=== PATIENT | female | born 1990 | race Caucasian/White ===

== ENCOUNTER 2016-05-25 19:25 | Emergency (ER) | payer BC, OTHER ==
[~2016-05-25] VITALS: Ht 162.6 cm; Wt 53.0 kg
[~2016-05-25 19:25] MED LIST: AGM875 PO; CLONOPIN; YAZ
[2016-05-25 19:36] VITALS: BP 115/63; PULSE 66; TEMP 37; O2SAT 93; Ht 162.6 cm; Wt 53.0 kg
[2016-05-25] MEDS ORDERED: ACETAMINOPHEN 500 MG TAB PO STA (19:53)
[2016-05-25] MEDS ORDERED: BCPILLS PO (19:55)
[2016-05-25] MEDS ORDERED: CITA20TA4 PO (19:55)
--- NOTE | 2016-05-25 22:36 | EMERGENCY ROOM VISIT NOTE ---
History Report prepared by Angelica: Zoila Lin Under the Supervision of: Dr. Osmin Dickey D.O. First contact with patient: 19:40 Chief Complaint: SWELLING TO EXTREMITY Stated Complaint: RT LEG SWELLING History of Present Illness The patient is a 25 year old female who presents to the Emergency Room with complaints of worsening swelling to her right lower extremity for the past 2 hours. The patient was hiking today and states that she fell while she was "jumping from rock to rock." She landed on the right side of her body. She is complaining of right lower leg pain, right forearm pain, right wrist pain, and left knee pain. Bending and palpation exacerbate her pain. The patient rates her current pain as a 10/10 in severity. She went to [facility] and had x-rays done that she states did not reveal any fractures. She was told to come to the ED for further evaluation because they were concerned for compartment syndrome. The patient denies any head injury, LOC, neck pain, and back pain. She has no other complaints. She has no tingling or numbness in her legs or arms. No Weakness. Source of History: patient Onset: 2 hours LANGUAGE ASST Position: leg (right) Symptom Intensity: 10/10 Quality: other (swelling) Timing: worsening Modifying Factors (Worsening): other (bending/palpation) Associated Symptoms: No LOC, No back pain, No neck pain Note: Pt notes right lower leg pain, right forearm pain, right wrist pain, and left knee pain. Pt denies any head injury. Review of Systems See HPI for pertinent positives & negatives. A total of 10 systems reviewed and were otherwise negative. Past Medical & Surgical Medical Problems: (1) No significant active problems Family History No pertinent history stated. Social History Smoking Status: Never Smoker Occupation Status: employed Current/Historical Medications Scheduled Control Pills ( Control Pills), 1 TAB PO HS Citalopram Hydrobromide (Citalopram Hydrobromide), 1 TAB PO DAILY Allergies Coded Allergies: No Known Allergies (Unverified , NONE, 05/25/16) Physical Exam Vital Signs Date Time Temp Pulse Resp B/P Pulse Ox O2 Delivery O2 Flow Rate FiO2 05/25/16 19:36 37.0 66 20 115/63 93 Room Air Physical Exam GENERAL: alert, sitting up in bed, anxious appearing, well nourished, no acute distress, non-toxic HEAD: normal cephalic, atraumatic EYE EXAM: normal conjunctiva, PERRL and EOM's grossly intact OROPHARYNX: no exudate, no erythema, lips, buccal mucosa, and tongue normal and mucous membranes are moist NECK: supple, no nuchal rigidity, no adenopathy, non-tender CHEST: stable to compression anteriorly and posteriorly LUNGS: clear to auscultation. Normal chest wall mechanics HEART: no murmurs, S1 normal and S2 normal ABDOMEN: abdomen soft, non-tender, normo-active bowel sounds, no masses, no rebound or guarding. PELVIS: stable to compression anteriorly and posteriorly BACK: Back is symmetrical on inspection and there is no deformity, no midline tenderness, no CVA tenderness. UPPER EXTREMITIES: Bruising over the right mid-ulna on the dorsal aspect with minimal tenderness to palpation, full active and passive range of motion of all joints without tenderness to palpation LOWER EXTREMITIES: Right olivarez with an abrasion and bruising in the right lateral anterior olivarez. Compartments are soft. Flexion/extension of the hip, knee, ankle, and EHL intact bilaterally. DP 2/4, gross sensation intact. No pain with flexion or extension at the ankle. Left knee with abrasion and bruising over the patella. Full active and passive range of motion of hip, knee , and ankle. NEURO EXAM: Normal sensorium, cranial nerves II-XII grossly intact, normal speech, no gross weakness of arms, no gross weakness of legs. GCS: 15. Medical Decision & Procedures Medications Administered Medications (Trade) Dose Ordered Sig/Willis Route Start Time Stop Time Status Last Admin Dose Admin Acetaminophen (Tylenol Tab) 1,000 mg NOW STAT PO 05/25/16 19:53 05/25/16 19:56 DC 05/25/16 19:59 1,000 MG ED Course ED COURSE: Vital signs were reviewed and showed normal vitals The patients medical record was reviewed The above diagnostic studies were performed and reviewed. ED treatments and interventions as stated above. 1939: The patient was evaluated in room B12B. A complete history and physical examination was performed. 1952: Tylenol tab 1000 mg PO 2001: Upon reevaluation, the patient is refusing to have x-rays done and states that she just wanted to make sure that she did not have compartment syndrome. I discussed my findings with the patient and she understands and agrees with the treatment plan. Based on the patients age, coexisting illnesses, exam and lab findings the decision to treat as an outpatient was made. The patient remained stable while under my care. The patient appeared well at the time of discharge. Medical Decision Differential diagnoses include major intracranial, cervical, spinal, thoracic, abdominal, pelvic and neurologic injury. Fracture, contusion, sprain, strain, laceration, abrasions included as well. Patient is a 25-year-old female who presents the ER referred in from [facility] for possible compartment syndrome of her right calf. On exam all compartments are soft. She does have some fullness along her right lateral calf. There is no tingling or numbness. Pulses are intact. No pain with flexion or extension of the ankle. Unable to review x-rays from [facility] recommended repeating them the patient declined. She understood the risk and benefits of this she was discharged to follow-up PCP following a dose of Tylenol. Discussed with Pt concerning signs and symptoms to watch out for. Pt was instructed to follow up with their PCP and discussed with the patient their option to return to the ED at anytime for persistent or worsening symptoms. The appropriate anticipatory guidance and out-patient management, including indications for return to the emergency department, were explained at length to the patient and understood. Impression Primary Impression: Multiple contusions Scribe Attestation The scribe's documentation has been prepared under my direction and personally reviewed by me in its entirety. I confirm that the note above accurately reflects all work, treatment, procedures, and medical decision making performed by me. Departure Information Dispostion Home / Self-Care Referrals No Doctor, Assigned (PCP) Ivan Woods M.D. Forms HOME CARE DOCUMENTATION FORM, IMPORTANT VISIT INFORMATION, WORK / SCHOOL INSTRUCTIONS Patient Instructions ED Contusion Lower Ext, My [facility] Additional Instructions Please follow up with your primary care doctor with in the next 24 hours. Any worsening of your symptoms, please return to the ED immediately. This includes numbness in your leg, weakness in your leg, unable to ambulate, or any other concerning signs or symptoms from your standpoint. Please take Motrin or Tylenol as needed for pain. We were unable to read your x-rays and consequently recommended performing additional x-rays but you declined. Please apply ice as needed to decrease swelling
== END 2016-05-25 20:16 | disposition home or self-care (01) ==
LOC: C.EDB 19:25
DX: T14.8 Other injury of unspecified body region (principal); W17.89XA Other fall from one level to another, initial encounter

== ENCOUNTER 2017-09-14 05:51 | Emergency (ER) | payer BC ==
[~2017-09-14] VITALS: Ht 165.1 cm; Wt 50.0 kg
[~2017-09-14 05:51] MED LIST changes: -AGM875 PO; +BCPILLS PO; +CITA20TA4 PO; -CLONOPIN; -YAZ
[2017-09-14 05:52] VITALS: TEMP 36.6; Ht 165.1 cm; Wt 50.0 kg
[2017-09-14] MEDS ORDERED: SODIUM CHLORIDE 0.9% 1000ML 1,000 ML IV STA (06:39)
[2017-09-14] MEDS ORDERED: KETOROLAC TROMETHAMINE 30 MG/ML VIAL IV STA (06:39)
[2017-09-14] MEDS ORDERED: HYDROmorphone INJ 0.5 MG/0.5 ML SYR IV STA ×3 (06:39→09:11)
[2017-09-14] MEDS ORDERED: ONDANSETRON INJ 2 MG/ML 2 ML VIAL IV STA (06:39)
--- NOTE | 2017-09-14 06:44 | EMERGENCY ROOM VISIT NOTE ---
History Report prepared by Angelica: Christopher Vaughan Under the Supervision of: Dr. Gilbert Peck M.D. First contact with patient: 06:30 Chief Complaint: URINARY SYMPTOMS Stated Complaint: PAIN,GROWING ALL FROM KIDNEY AREA LFT SIDE Nursing Triage Summary: see triage note History of Present Illness The patient is a 27 year old female who presents to the Emergency Room with complaints of constant left sided flank pain that began last night while she was working. The pain is radiating into the left lower abdominal quadrant as well. She also notes that she feels very "disoriented." The patient notes that she has had many urinary/bladder infections in the past. She states that in the past she has experienced hematuria with her previous episodes. She does admit a history of "anxiety issues" and notes that she can feel her heart racing. She also notes that she has a history of "irregular heart beat." She does not deny the possibility of and notes that her LNMP was 2 weeks ago Source of History: patient Onset: Last night Position: back (left flank) Timing: constant Associated Symptoms: + abdominal pain Note: Patient complains of feeling "disoriented" Review of Systems See HPI for pertinent positives & negatives. A total of 10 systems reviewed and were otherwise negative. Past Medical & Surgical Medical Problems: (1) No significant active problems Family History Cancer Diabetes mellitus Heart disease Hypertension Lung disease Social History Smoking Status: Current Every Day Smoker Drug Use: none Marital Status: in relationship Housing Status: lives with significant other Occupation Status: employed Current/Historical Medications Scheduled Doxycycline Monohydrate (Monodox), 100 MG PO BID Scheduled PRN Oxycodone/Acetaminophen 5MG/325MG (Percocet 5MG/325MG), 1-2 TAB PO Q4H PRN for Pain Allergies Coded Allergies: No Known Allergies (Unverified , NONE, 09/14/17) Physical Exam Vital Signs Date Time Temp Pulse Resp B/P (MAP) Pulse Ox O2 Delivery O2 Flow Rate FiO2 09/14/17 13:36 82 16 132/92 100 09/14/17 11:42 91 18 143/89 100 Room Air 09/14/17 10:35 90 22 141/93 99 Room Air 09/14/17 10:04 92 16 131/98 100 Room Air 09/14/17 07:53 73 18 141/96 100 Room Air 09/14/17 05:52 36.6 110 18 150/87 100 Room Air Physical Exam GENERAL: Awake, alert, hyperventilating on exam. HENT: Normocephalic, atraumatic. Oropharynx unremarkable. EYES: Normal conjunctiva. Sclera non-icteric. NECK: Supple. No nuchal rigidity. FROM. No JVD. RESPIRATORY: Hyperventilating on exam. Clear to auscultation. CARDIAC: Regular rate, normal rhythm. Extremities warm and well perfused. Pulses equal. ABDOMEN: Soft, non-distended. No tenderness to palpation. No rebound or guarding. No masses. RECTAL: Deferred. MUSCULOSKELETAL: Chest examination reveals no tenderness. The back is symmetrical on inspection without obvious abnormality. There is no CVA tenderness to palpation. No joint edema. LOWER EXTREMITIES: Calves are equal size bilaterally and non-tender. No edema. No discoloration. NEURO: Normal sensorium. No sensory or motor deficits noted. SKIN: No rash or jaundice noted. Medical Decision & Procedures ER Provider Diagnostic Interpretation: Radiology results as stated below per my review and radiologist interpretation: CT SCAN OF THE ABDOMEN AND PELVIS WITH IV CONTRAST CLINICAL HISTORY: Low back pain. Left flank pain. COMPARISON STUDY: Pelvic and renal ultrasounds dated 09/14/2017. TECHNIQUE: Following the IV administration of 92 cc of Optiray 320, CT scan of the abdomen and pelvis is performed from the lung bases to the proximal femora. Images are reviewed in the axial, sagittal, and coronal planes. IV contrast was administered without complication. A dose lowering technique was utilized adhering to the principles of ALARA. CT DOSE: 252.22 mGy.cm FINDINGS: Lung bases: The heart is normal in size and without pericardial effusion. The lung bases are clear. Liver: The contrast-enhanced liver is normal in size, contour, and attenuation. There is no intrahepatic biliary ductal dilatation. The hepatic veins and portal veins are patent. Gallbladder: Unremarkable. Spleen: Normal in size and attenuation. Pancreas: Unremarkable. Adrenal glands: Unremarkable. Kidneys: The contrast enhanced kidneys are normal in size and without hydronephrosis. The kidneys enhance symmetrically. A subcentimeter cortical hypodensity in the left kidney seen on image #128 likely represents a cyst but is too small for definitive characterization. Abdominal vasculature: The abdominal aorta is normal in course and caliber. Bowel: There is mild wall thickening of the left colon with faint pericolonic infiltration. No bowel obstruction is seen. The appendix is well-visualized and normal. Peritoneum: There is no intraperitoneal free air or abdominal ascites. Lymphadenopathy: A prominent venous varix is incidentally noted in the left periaortic region on image #126. No lymphadenopathy is seen. Pelvic viscera: The bladder, uterus, and adnexa are normal as visualized. There are small bilateral ovarian follicles. Skeletal structures: No lytic or blastic lesions are seen. IMPRESSION: Question a mild nonspecific colitis of the left colon, likely on an infectious/inflammatory basis. Clinical correlation will be required. Electronically signed by: Bonifacio Evangelista M.D. 09/14/2017 12:42 PM Dictated Date/Time: 09/14/2017 12:35 PM PELVIC ULTRASOUND, TRANSABDOMINAL AND TRANSVAGINAL HISTORY: Pt c/o left sided pelvic pain COMPARISON: None. FINDINGS: Uterus: Unremarkable. Endometrial stripe: 4 mm in thickness. Right ovary: Normal in size and demonstrates normal color flow. Left ovary: Normal in size and demonstrates normal color flow. Miscellaneous:No pelvic free fluid. IMPRESSION: No significant abnormality identified within the pelvis. Electronically signed by: Sai Rubio M.D. 09/14/2017 10:06 AM Dictated Date/Time: 09/14/2017 10:05 AM KUB HISTORY: Pt c/o left sided flank pain COMPARISON: None. FINDINGS: The bowel gas pattern is unremarkable. There are no dilated loops of small bowel to suggest an obstruction. No renal calculi. No ureteral calculi. No pneumoperitoneum. No pneumatosis. Small calcification within the right side of the pelvis favors a phlebolith. IMPRESSION: No renal or ureteral stones. Electronically signed by: Sai Rubio M.D. 09/14/2017 7:41 AM Dictated Date/Time: 09/14/2017 7:38 AM RENAL ULTRASOUND HISTORY: Pt c/o left sided flank pain COMPARISON: None. FINDINGS: Right kidney: 9.9 cm. No hydronephrosis. Normal corticomedullary differentiation and cortical thickness. Left kidney: 9.7 cm. No hydronephrosis. Normal corticomedullary differentiation and cortical thickness. Bladder: Mild bladder wall thickening. The ureteral jets are identified. IMPRESSION: 1. Normal kidneys. No hydronephrosis. 2. Mild bladder wall thickening which could be due to underdistention. Recommend correlation with urinalysis to exclude a cystitis. Electronically signed by: Sai Rubio M.D. 09/14/2017 7:52 AM Dictated Date/Time: 09/14/2017 7:51 AM Laboratory Results 09/14/17 06:56 Red Blood Count 4.50, Mean Corpuscular Volume 85.8, Mean Corpuscular Hemoglobin 28.4, Mean Corpuscular Hemoglobin Concent 33.2, Mean Platelet Volume 10.7, Neutrophils (%) (Auto) 68.5, Lymphocytes (%) (Auto) 23.6, Monocytes (%) (Auto) 6.8, Eosinophils (%) (Auto) 0.5, Basophils (%) (Auto) 0.3, Neutrophils # (Auto) 5.25, Lymphocytes # (Auto) 1.81, Monocytes # (Auto) 0.52, Eosinophils # (Auto) 0.04, Basophils # (Auto) 0.02 09/14/17 06:56 Test 09/14/17 06:35 09/14/17 06:56 09/14/17 12:05 Urine Color YELLOW Urine Appearance CLEAR (CLEAR) Urine pH 7.0 (4.5-7.5) Urine Specific [place] 1.006 (1.000-1.030) Urine Protein NEG (NEG) Urine Glucose (UA) NEG (NEG) Urine Ketones NEG (NEG) Urine Occult Blood NEG (NEG) Urine Nitrite NEG (NEG) Urine Bilirubin NEG (NEG) Urine Urobilinogen NEG (NEG) Urine Leukocyte Esterase TRACE (NEG) Urine WBC (Auto) 1-5 /hpf (0-5) Urine RBC (Auto) 0-4 /hpf (0-4) Urine Hyaline Casts (Auto) 0 /lpf (0-5) Urine Epithelial Cells (Auto) 20-30 /lpf (0-5) Urine Bacteria (Auto) NEG (NEG) Urine Test NEG (NEG) White Blood Count 7.66 K/uL (4.8-10.8) Red Blood Count 4.50 M/uL (4.2-5.4) Hemoglobin 12.8 g/dL (12.0-16.0) Hematocrit 38.6 % (37-47) Mean Corpuscular Volume 85.8 fL (80-100) Mean Corpuscular Hemoglobin 28.4 pg (25-34) Mean Corpuscular Hemoglobin Concent 33.2 g/dl (32-36) Platelet Count 230 K/uL (130-400) Mean Platelet Volume 10.7 fL (7.4-10.4) Neutrophils (%) (Auto) 68.5 % Lymphocytes (%) (Auto) 23.6 % Monocytes (%) (Auto) 6.8 % Eosinophils (%) (Auto) 0.5 % Basophils (%) (Auto) 0.3 % Neutrophils # (Auto) 5.25 K/uL (1.4-6.5) Lymphocytes # (Auto) 1.81 K/uL (1.2-3.4) Monocytes # (Auto) 0.52 K/uL (0.11-0.59) Eosinophils # (Auto) 0.04 K/uL (0-0.5) Basophils # (Auto) 0.02 K/uL (0-0.2) RDW Standard Deviation 40.9 fL (36.4-46.3) RDW Coefficient of Variation 13.0 % (11.5-14.5) Immature Granulocyte % (Auto) 0.3 % Immature Granulocyte # (Auto) 0.02 K/uL (0.00-0.02) Anion Gap 8.0 mmol/L (3-11) Est Creatinine Clear Calc Drug Dose 95.0 ml/min Estimated GFR () 136.3 Estimated GFR (Non- 117.6 BUN/Creatinine Ratio 15.4 (10-20) Calcium Level 9.0 mg/dl (8.5-10.1) Total Bilirubin 1.6 mg/dl (0.2-1) Direct Bilirubin 0.3 mg/dl (0-0.2) Aspartate Amino Transf (AST/SGOT) 17 U/L (15-37) Alanine Aminotransferase (ALT/SGPT) 23 U/L (12-78) Alkaline Phosphatase 60 U/L (45-117) Total Protein 7.7 gm/dl (6.4-8.2) Albumin 4.1 gm/dl (3.4-5.0) Lipase 56 U/L (73-393) Labs reviewed by ED physician. Medications Administered Medications (Trade) Dose Ordered Sig/Willis Route Start Time Stop Time Status Last Admin Dose Admin Ketorolac Tromethamine (Toradol Inj) 30 mg NOW STAT IV 09/14/17 06:39 09/14/17 06:42 DC 09/14/17 07:09 30 MG Hydromorphone HCl (Dilaudid Inj) 0.5 mg NOW STAT IV 09/14/17 06:39 09/14/17 06:42 DC 09/14/17 07:09 0.5 MG Ondansetron HCl (Zofran Inj) 4 mg NOW STAT IV 09/14/17 06:39 09/14/17 06:42 DC 09/14/17 07:09 4 MG Sodium Chloride 1,000 ml @ 999 mls/hr Q1H1M STAT IV 09/14/17 06:39 09/14/17 07:39 DC 09/14/17 07:08 999 MLS/HR Ceftriaxone Sodium (Rocephin Inj) 1 gm NOW STAT IV 09/14/17 08:04 09/14/17 08:05 DC 09/14/17 08:27 1 GM Trimethoprim/ Sulfamethoxazole (Septra Ds 800/ 160MG Tab) 1 tab NOW STAT PO 09/14/17 08:04 09/14/17 08:05 DC 09/14/17 08:27 1 TAB Hydromorphone HCl (Dilaudid Inj) 0.5 mg NOW STAT IV 09/14/17 08:22 09/14/17 08:24 DC 09/14/17 08:33 0.5 MG Hydromorphone HCl (Dilaudid Inj) 0.5 mg NOW STAT IV 09/14/17 09:11 09/14/17 09:13 DC 09/14/17 09:11 0.5 MG Metoclopramide HCl (Reglan Inj) 10 mg NOW STAT IV. 09/14/17 09:11 09/14/17 09:13 DC 09/14/17 09:11 10 MG Lorazepam (Ativan Tab) 1 mg NOW STAT SL 09/14/17 10:49 09/14/17 10:50 DC 09/14/17 11:40 1 MG Azithromycin (Zithromax Tab) 1,000 mg NOW STAT PO 09/14/17 12:07 09/14/17 12:09 DC 09/14/17 13:15 1,000 MG Doxycycline Hyclate (Vibramycin Cap) 100 mg NOW STAT PO 09/14/17 12:07 09/14/17 12:09 DC 09/14/17 13:14 100 MG ECG Per My Interpretation Indication: palpitations Rate (beats per minute): 87 Rhythm: normal sinus Findings: other (No KELLY/STD, normal axis/normal intervals) ED Course 0631: Past medical records reviewed. The patient was evaluated in room B10. A complete history and physical examination was performed. 0639: Ordered Sodium Chloride 1000 mL @ 999 mL/hr IV, Zofran 4 mg IV, Dilaudid 0.5 mg IV, Toradol 30 mg IV. 0713: Patient is stable at this time. 1049: I discussed the results of the patient's test until this time. She notes that she does have a history of diagnosis of several STDs. I offered a pelvic exam, she declines. 1124: I asked the Cyber Security Instructor to speak with the patient at this time. 1134: The patient is now requesting a pelvic exam. 1201: I performed a pelvic exam at this time. There is a drainage present. 1302: Upon reexamination the patient is resting in bed. I discussed results and treatment plan with the patient. She verbalizes agreement and understanding. The patient is ready for discharge. Medical Decision Differential diagnosis: Etiologies such as metabolic, urinary tract infection, infection, hypo/ hyperglycemia, electrolyte abnormalities, cardiac sources, toxicologic, neurologic, as well as others were entertained. This is a 27-year-old female who presents emergency department complaining of multiple complaints. The patient is complaining of left lower quadrant abdominal pain and appears to be acutely upset. She is crying on examination. Using shared medical decision making with the patient she is concerned about a kidney stone therefore she was originally sent for KUB as well as ultrasound of the kidneys. She also had laboratory work obtained. The patient is not . UA may suggest a UTI. For this reason she was started on Rocephin here in the emergency department. KUB and ultrasound did not show any evidence of kidney stone. I did discuss my findings with the patient who became upset that we did not find anything. She then went on to describe how she was treated 3 times last year for recurrent STD. She is unsure how to proceed and became very tearful over the bill. I then requested to speak with the patient' s mother however she refused. She spoke for a extended period of time with her mother. After some time the patient then decided to proceed with a CAT scan of the abdomen pelvis as well as a pelvic exam. The patient appears to have a whitish discharge on pelvic examination. Based on her past medical history and then using shared medical decision making with the patient we decided to place the patient on azithromycin as well as doxycycline. CAT scan was concerning for a mild colitis. I will note that the patient does not have a surgical abdomen and I feel safe enough to be discharged home. Due to the extended stay in the emergency department I did have case management touch base with this patient as the patient was extremely upset. She was given Dilaudid as well as Ativan here in the emergency department. Repeat examination revealed improvement in the patient's symptoms. Medication Reconcilliation Current Medication List: was personally reviewed by me Blood Pressure Screening Patient's blood pressure: Elevated blood pressure Blood pressure disposition: Elevated BP felt to be situational Impression Primary Impression: Left sided abdominal pain Scribe Attestation The scribe's documentation has been prepared under my direction and personally reviewed by me in its entirety. I confirm that the note above accurately reflects all work, treatment, procedures, and medical decision making performed by me. Departure Information Dispostion Home / Self-Care Prescriptions Oxycodone/Acetaminophen 5MG/325MG (PERCOCET 5MG/325MG) Tab 1-2 TAB PO Q4H Y for Pain, #14 TAB Prov: Gilbert Peck MD 09/14/17 Doxycycline Monohydrate (Monodox) 100 Mg Cap 100 MG PO BID for 10 Days, #20 CAP Prov: Gilbert Peck MD 09/14/17 Referrals Ivan Woods M.D. (PCP) Forms HOME CARE DOCUMENTATION FORM, IMPORTANT VISIT INFORMATION Patient Instructions My [facility] Additional Instructions You received narcotic or benzodiazepene medication while in the emergency room today. This is an addictive medication that may cause drowziness as well as constipation. Do not drive, operate heavy machinery, or drink alcohol under the influence of this medication. Take 600 mg Ibuprofen every 6 hours Take Percocet for breakthrough pain Culture results are usually available in approx 48 hours You have been examined and treated today on an emergency basis only. This is not a substitute for, or an effort to provide, complete comprehensive medical care. It is impossible to recognize and treat all injuries or illnesses in a single emergency department visit. It is therefore important that you follow up closely with Dr Woods. Call as soon as possible for an appointment. Thank you for your time and consideration. I look forward to speaking with you again soon. Please don't hesitate to call us if you have any questions.
[2017-09-14 07:17] LABS: BASO % 0.3 %; BASO ABS # 0.02 K/uL (0-0.2); EOS % 0.5 %; EOS ABS # 0.04 K/uL (0-0.5); HEMATOCRIT 38.6 % (37-47); HEMOGLOBIN 12.8 g/dL (12.0-16.0); IG# 0.02 K/uL (0.00-0.02); LYMPH % 23.6 %; LYMPH ABS # 1.81 K/uL (1.2-3.4); MEAN CELL VOLUME 85.8 fL (80-100); MEAN CORPUSCULAR HEMOGLOBIN 28.4 pg (25-34); MEAN CORPUSCULAR HGB CONC 33.2 g/dl (32-36); MEAN PLATELET VOLUME 10.7 fL (7.4-10.4); MONO % 6.8 %; MONO ABS # 0.52 K/uL (0.11-0.59); NEUT % 68.5 %; NEUT ABS # 5.25 K/uL (1.4-6.5); PLATELET COUNT 230 K/uL (130-400); RED CELL DISTRIBUTION WIDTH SD 40.9 fL (36.4-46.3); WHITE BLOOD COUNT 7.66 K/uL (4.8-10.8)
--- NOTE | 2017-09-14 07:42 | DIAGNOSTIC IMAGING REPORT ---
KUB HISTORY: Pt c/o left sided flank pain COMPARISON: None. FINDINGS: The bowel gas pattern is unremarkable. There are no dilated loops of small bowel to suggest an obstruction. No renal calculi. No ureteral calculi. No pneumoperitoneum. No pneumatosis. Small calcification within the right side of the pelvis favors a phlebolith. IMPRESSION: No renal or ureteral stones. Electronically signed by: Sai Rubio M.D. 09/14/2017 7:41 AM Dictated Date/Time: 09/14/2017 7:38 AM
[2017-09-14 07:46] LABS: ALBUMIN 4.1 gm/dl (3.4-5.0); CREATININE 0.69 mg/dl (0.60-1.20); POTASSIUM 3.7 mmol/L (3.5-5.1); TOTAL PROTEIN 7.7 gm/dl (6.4-8.2)
--- NOTE | 2017-09-14 07:54 | DIAGNOSTIC IMAGING REPORT ---
RENAL ULTRASOUND HISTORY: Pt c/o left sided flank pain COMPARISON: None. FINDINGS: Right kidney: 9.9 cm. No hydronephrosis. Normal corticomedullary differentiation and cortical thickness. Left kidney: 9.7 cm. No hydronephrosis. Normal corticomedullary differentiation and cortical thickness. Bladder: Mild bladder wall thickening. The ureteral jets are identified. IMPRESSION: 1. Normal kidneys. No hydronephrosis. 2. Mild bladder wall thickening which could be due to underdistention. Recommend correlation with urinalysis to exclude a cystitis. Electronically signed by: Sai Rubio M.D. 09/14/2017 7:52 AM Dictated Date/Time: 09/14/2017 7:51 AM
[2017-09-14] MEDS ORDERED: CEFTRIAXONE SOD INJ 1 GM ADDVIAL IV STA (08:04)
[2017-09-14] MEDS ORDERED: SULFAMETHOXAZOLE/TRIMETHOPRIM DS 800/160MG TAB PO STA (08:04)
[2017-09-14] MEDS ORDERED: OPTIRAY 320 IV PRN (08:30)
[2017-09-14] MEDS ORDERED: METOCLOPRAMIDE HCL INJ 5 MG/ML 2 ML VIAL IV. STA (09:11)
--- NOTE | 2017-09-14 10:07 | DIAGNOSTIC IMAGING REPORT ---
PELVIC ULTRASOUND, TRANSABDOMINAL AND TRANSVAGINAL HISTORY: Pt c/o left sided pelvic pain COMPARISON: None. FINDINGS: Uterus: Unremarkable. Endometrial stripe: 4 mm in thickness. Right ovary: Normal in size and demonstrates normal color flow. Left ovary: Normal in size and demonstrates normal color flow. Miscellaneous:No pelvic free fluid. IMPRESSION: No significant abnormality identified within the pelvis. Electronically signed by: Sai Rubio M.D. 09/14/2017 10:06 AM Dictated Date/Time: 09/14/2017 10:05 AM
[2017-09-14] MEDS ORDERED: LORAZEPAM 1 MG TAB SL STA (10:49)
[2017-09-14] MEDS ORDERED: DOXYCYCLINE HYCLATE 100 MG CAP PO STA (12:07)
[2017-09-14] MEDS ORDERED: AZITHROMYCIN 250 MG TAB PO STA (12:07)
--- NOTE | 2017-09-14 12:44 | DIAGNOSTIC IMAGING REPORT ---
CT SCAN OF THE ABDOMEN AND PELVIS WITH IV CONTRAST CLINICAL HISTORY: Low back pain. Left flank pain. COMPARISON STUDY: Pelvic and renal ultrasounds dated 09/14/2017. TECHNIQUE: Following the IV administration of 92 cc of Optiray 320, CT scan of the abdomen and pelvis is performed from the lung bases to the proximal femora. Images are reviewed in the axial, sagittal, and coronal planes. IV contrast was administered without complication. A dose lowering technique was utilized adhering to the principles of ALARA. CT DOSE: 252.22 mGy.cm FINDINGS: Lung bases: The heart is normal in size and without pericardial effusion. The lung bases are clear. Liver: The contrast-enhanced liver is normal in size, contour, and attenuation. There is no intrahepatic biliary ductal dilatation. The hepatic veins and portal veins are patent. Gallbladder: Unremarkable. Spleen: Normal in size and attenuation. Pancreas: Unremarkable. Adrenal glands: Unremarkable. Kidneys: The contrast enhanced kidneys are normal in size and without hydronephrosis. The kidneys enhance symmetrically. A subcentimeter cortical hypodensity in the left kidney seen on image #128 likely represents a cyst but is too small for definitive characterization. Abdominal vasculature: The abdominal aorta is normal in course and caliber. Bowel: There is mild wall thickening of the left colon with faint pericolonic infiltration. No bowel obstruction is seen. The appendix is well-visualized and normal. Peritoneum: There is no intraperitoneal free air or abdominal ascites. Lymphadenopathy: A prominent venous varix is incidentally noted in the left periaortic region on image #126. No lymphadenopathy is seen. Pelvic viscera: The bladder, uterus, and adnexa are normal as visualized. There are small bilateral ovarian follicles. Skeletal structures: No lytic or blastic lesions are seen. IMPRESSION: Question a mild nonspecific colitis of the left colon, likely on an infectious/inflammatory basis. Clinical correlation will be required. Electronically signed by: Bonifacio Evangelista M.D. 09/14/2017 12:42 PM Dictated Date/Time: 09/14/2017 12:35 PM
[2017-09-14] MEDS ORDERED: DOXY100C76 PO (13:10)
[2017-09-14] MEDS ORDERED: OXYC-57 PO (13:10)
[2017-09-14 13:36] VITALS: BP 132/92; PULSE 82; O2SAT 100
--- NOTE | 2017-09-17 13:35 | Pharmacy Progress Note ---
ED Pharmacist Culture FollowUp Date of Service: Sep 17, 2017. Genital culture result with Rare Staph Aureus (MRSA) + Heavy normal nicanor, no clue cells on gram stain, rare WBCs seen. Also resistant to erythromycin, tetracycline, clindamycin. Patient was discharged on doxycycline for possible concern for STDs. Patient also received 1 dose of bactrim, 1000 mg of Azithromycin and 1000 mg rocephin in the ED. Discussed culture result with Dr. Peck who feels possible colonization and rare quantity does not need treatment at this time. Per Dr. Peck no treatment, no need to contact patient at this time.
== END 2017-09-14 13:36 | disposition home or self-care (01) ==
LOC: C.EDB 05:52
DX: R10.32 Left lower quadrant pain (principal); N89.8 Other specified noninflammatory disorders of vagina; R06.4 Hyperventilation; Z87.42 Personal history of other diseases of the female genital tract; F17.200 Nicotine dependence, unspecified, uncomplicated

== ENCOUNTER 2017-09-28 23:24 | Emergency (ER) | payer BC ==
[~2017-09-28 23:24] MED LIST changes: -BCPILLS PO; -CITA20TA4 PO; +OXYC-57 PO
[2017-09-28 23:29] VITALS: TEMP 36.3; Ht 167.6 cm
[2017-09-28] MEDS ORDERED: KETOROLAC TROMETHAMINE 30 MG/ML VIAL IM STA (23:50)
--- NOTE | 2017-09-28 23:57 | EMERGENCY ROOM VISIT NOTE ---
History Report prepared by Angelica: Christopher Vaughan Under the Supervision of: Dr. Amber Dominguez D.O. First contact with patient: 23:36 Chief Complaint: FLANK PAIN Stated Complaint: A LOT OF PAIN/HEAT IN KIDNEY AREA History of Present Illness The patient is a 27 year old female who presents to the Emergency Room with complaints of persistent left sided flank pain that began two days ago. She describes the pain as a "pressure" that is worsened/precipitated by walking and opening doors. The patient was seen here in the Emergency Department 14 days ago for the same symptoms. The patient had a significant work up at this time and was placed on antibiotics for a urinary trac infection. She notes that she stopped the antibiotic 2 days ago and her pain started again shortly after. While on the antibiotic she states she felt "totally fine." She also notes that she feels "very weak and tired." Her LNMP was about 4 weeks ago and she has never been . Source of History: patient Onset: 2 days ago Position: back (Left lower back) Quality: pressure Timing: other (persistent) Modifying Factors (Worsening): other (walking, opening doors) Review of Systems See HPI for pertinent positives & negatives. A total of 10 systems reviewed and were otherwise negative. Past Medical & Surgical Medical Problems: (1) No significant active problems Family History Cancer Diabetes mellitus Heart disease Hypertension Lung disease Social History Smoking Status: Current Every Day Smoker Drug Use: none Marital Status: in relationship Housing Status: lives with significant other Occupation Status: employed Current/Historical Medications No Active Prescriptions or Reported Meds Allergies Coded Allergies: No Known Allergies (Unverified , NONE, 09/29/17) Physical Exam Vital Signs Date Time Temp Pulse Resp B/P (MAP) Pulse Ox O2 Delivery O2 Flow Rate FiO2 09/29/17 01:27 90 18 119/83 100 09/28/17 23:29 36.3 96 18 132/90 100 Room Air Physical Exam General: Patient appears very anxious. HEENT: Head - normocephalic and atraumatic Pupils are equal, round, and reactive to light. Extraocular eye muscles are intact, and sclera are anicteric. Nose - moist nasal mucosa without discharge. Mouth - moist buccal mucosa. Oropharynx is nonerythematous and there is no tonsillar exudate or edema noted. Neck: Supple; no JVD, nuchal rigidity, cervical lymphadenopathy. Heart: Regular rate and rhythm. There is a normal S1 and S2 with no murmurs, clicks, or gallops appreciated. Lungs: Clear to auscultation bilaterally with no wheezes, rales, or rhonchi. Abdomen: Soft, completely nontender, nondistended, with good bowel sounds. There are no palpable pulsatile masses or hepatosplenomegaly. There is no guarding, rigidity, or rebound noted. Back: There is pain on palpation of the left lumbar paraspinous muscles. Extremities: No evidence of cyanosis, clubbing, or edema. There are easily palpable peripheral pulses. Skin: warm and dry with good turgor and no rashes. Medical Decision & Procedures Laboratory Results Test 09/29/17 00:00 Urine Color DK YELLOW Urine Appearance CLOUDY (CLEAR) Urine pH 5.0 (4.5-7.5) Urine Specific Wittmann 1.030 (1.000-1.030) Urine Protein 1+ (NEG) Urine Glucose (UA) NEG (NEG) Urine Ketones 1+ (NEG) Urine Occult Blood NEG (NEG) Urine Nitrite NEG (NEG) Urine Bilirubin NEG (NEG) Urine Urobilinogen NEG (NEG) Urine Leukocyte Esterase TRACE (NEG) Urine WBC (Auto) 10-30 /hpf (0-5) Urine RBC (Auto) 0-4 /hpf (0-4) Urine Hyaline Casts (Auto) 0 /lpf (0-5) Urine Epithelial Cells (Auto) >30 /lpf (0-5) Urine Bacteria (Auto) NEG (NEG) Urine Pathogenic Casts /lpf (0) Urine Mucus PRESENT (NONE PRSENT) Laboratory results per my review. Medications Administered Medications (Trade) Dose Ordered Sig/[facility] Route Start Time Stop Time Status Last Admin Dose Admin Ketorolac Tromethamine (Toradol Inj) 30 mg NOW STAT IM 09/28/17 23:50 09/28/17 23:52 DC 09/29/17 00:00 30 MG Procedure Medications Ordered: Toradol ED Course 2336: Past medical records reviewed. The patient was evaluated in room A12B. A complete history and physical exam was performed. The patient was given 60 mg of IM Toradol. A urine specimen was collected. 0106: Upon reevaluation, the patient had significant relief of her pain. I discussed findings and results with her. She verbalized agreement of the treatment plan. The patient was discharged home. Medical Decision The patient is a 27 year old female who presents to the Emergency Department with left sided lower back pain. Differential diagnosis includes Anxiety, UTI, pyelonephritis, and musculoskeletal back pain. Urinalysis was reviewed and shows; 1+ ketones, trace leukocyte esterase, 10-30 WBCs, negative for bacteria, and epithelial cells. Urinalysis does not appear to be infected. However, will be sent for culture. The patient is much more comfortable prior to discharge. She was encouraged to continue using NSAIDs for the pain in her low back. I wrote her to be off work tomorrow and to avoid strenuous activity for the next couple of days. Medication Reconcilliation Current Medication List: was personally reviewed by me Blood Pressure Screening Patient's blood pressure: Normal blood pressure Impression Primary Impression: Left low back pain Scribe Attestation The scribe's documentation has been prepared under my direction and personally reviewed by me in its entirety. I confirm that the note above accurately reflects all work, treatment, procedures, and medical decision making performed by me. Departure Information Dispostion Home / Self-Care Prescriptions No Active Prescriptions or Reported Meds Referrals Ivan Woods M.D. (PCP) Forms HOME CARE DOCUMENTATION FORM, IMPORTANT VISIT INFORMATION Patient Instructions [employer] Additional Instructions Rest. Take ibuprofen - 600mg every 6 hours with food for pain Problem Qualifiers Primary Impression: Left low back pain Chronicity: acute Sciatica presence: without sciatica Qualified Codes: M54.5 - Low back pain
[2017-09-29 01:27] VITALS: BP 119/83; PULSE 90; O2SAT 100
== END 2017-09-29 01:27 | disposition home or self-care (01) ==
LOC: C.EDB 23:25 → C.EDA 09-29 01:27
DX: M54.5 Low back pain (principal); R10.9 Unspecified abdominal pain; F17.200 Nicotine dependence, unspecified, uncomplicated